=== PATIENT | female | born 1980 | race Two or more races ===

== ENCOUNTER 2024-06-04 10:20 | Day surgery (SDC) | payer BC, SELFPAY ==
[2024-06-01 14:56] VITALS: BMI 36.3
[2024-06-04] VITALS (9 sets, daily range): BP systolic 110–145; BP diastolic 72–115; PULSE 69–106; RESP 14–20; TEMP 36.9; O2SAT 93–98; BMI 36.2
[2024-06-04] MEDS: DiphenhydrAMINE INJ 50 MG/ML VIAL 25 MG IV (13:11)
[2024-06-04] MEDS: ONDANSETRON INJ 2 MG/ML INJ 2 ML 4 MG IV (13:13)
[2024-06-04] MEDS: fentaNYL CIT INJ 50 mCg/ML AMP 2ML (ASD USE ONLY) IV (13:13)
[2024-06-04] MEDS: MEPERIDINE INJ 25 MG/ML VIAL (ASD USE ONLY) IV (13:20)
[2024-06-04] MEDS: MIDAZOLAM INJ 1 MG/ML VIAL 2 ML (ASD USE ONLY) 2 MG IV (13:20)
== END 2024-06-04 14:15 | disposition home or self-care (01) ==
PROVIDERS: PCP Nurse Practitioner; Referring Provider Specialist; Visit Provider Specialist
PROC: 0DBE8ZX Excision of Large Intestine, Via Natural or Artificial Opening Endoscopic, Diagnostic (ICD-10-PCS; CPT 45380; principal; 2024-06-04 09:45)
DX: D12.3 Benign neoplasm of transverse colon (principal); K64.8 Other hemorrhoids
CPT/HCPCS: 45380; 81025; J1200; J2175; J2250; J2405; J3010

== ENCOUNTER 2024-06-19 16:51 | Emergency (ER) | payer BC, SELFPAY ==
[2024-06-19 17:14] VITALS: BP 125/81; PULSE 113; RESP 20; TEMP 38.2; O2SAT 97; BMI 35.4
--- NOTE | 2024-06-19 17:27 | XR_ITS ---
Examination: PA lateral chest 2 views Technique: Upright PA lateral chest 2 views Exam date and time: June 082024 1825 hrs. Comparison March 31, 2008 Indication: Fever vomiting coughing today. Findings: Normal heart size Mild accentuation bronchovascular markings. No lobar pneumonia Impression: Mild accentuation bronchovascular markings
--- NOTE | 2024-06-19 17:31 | PD.EDRME ---
Rapid Medical Screening Exam RME Arrival date/time: 06/19/24 16:51 43-year-old female presents to the emergency department complains of nausea vomiting abdominal pain Chief Complaint: Nausea/Vomiting/Diarrhea Time Seen by Provider: 06/19/24 17:01 Vital signs: Vital Signs Temperature 100.8 F H 06/19/24 17:14 Pulse Rate 113 H 06/19/24 17:14 Respiratory Rate 20 06/19/24 17:14 Blood Pressure 125/81 06/19/24 17:14 Pulse Oximetry (%) 97 06/19/24 17:14 Oxygen Delivery Method Room Air 06/19/24 17:14
[2024-06-19] MEDS: ONDANSETRON ODT 4 MG TABRAP PO (17:48)
[2024-06-19] MEDS: ACETAMINOPHEN 500 MG TABLET 1000 MG PO (17:48)
[2024-06-19 18:11] LABS: Collection Type, Urine Clean Catch
[2024-06-19 18:31] LABS: Basophils % (Auto) 0 % (0-2.5); Eosinophils % (Auto) 0 % (0-10); Hemoglobin 15.3 g/dL (12.0-16.0); Immature Granulocytes % (Auto) 0 % (0-0); Immature Granulocytes Auto 0.05 Thou/mm3 (0.00-0.00); Lymphocytes # (Auto) 0.9 Thou/mm3 (1.0-4.8); Lymphocytes % (Auto) 8 % (10-50); Mean Corpuscular HGB Conc 34.8 g/dl (31.0-37.0); Mean Corpuscular Hemoglobin 31.2 pg (25.0-35.0); Mean Corpuscular Volume 90 fL (80-100); Monocytes # (Auto) 0.3 Thou/mm3 (0.0-0.8); Monocytes % (Auto) 2 % (0-12); Neutrophils # (Auto) 10.5 Thou/mm3 (1.8-7.7); Neutrophils % (Auto) 90 % (37-80); Nucleated Red Blood Cell % 0 /100 WBC (0); Platelet Count 330 Thou/mm3 (140-440); Red Blood Count 4.91 Miln/mm3 (4.00-5.20); White Blood Count 11.8 Thou/mm3 (3.6-11.0)
[2024-06-19 18:42] LABS: HCG,Qualitative Serum Negative
[2024-06-19 18:45] LABS: Alanine Aminotransferase 227 U/L (10-49); Albumin, Serum 4.7 gm/dL (3.5-5.0); Albumin/Globulin Ratio 1.2 (1.2-2.2); Alkaline Phosphatase 112 U/L (46-116); Anion Gap 12 (7-16); Aspartate Amino Transferase 108 U/L (0-34); BUN/Creatinine Ratio 15 Ratio (12-20); Bilirubin,Total 1.2 mg/dL (0.3-1.2); Blood Urea Nitrogen 12 mg/dL (9-23); Carbon Dioxide 25.2 mMol/L (20.0-31.0); Chloride 103 mMol/L (98-107); Creatinine (Component) 0.8 mg/dL (0.6-1.3); Estimated Creatinine Clearance 95.3 mL/min (>60); Globulin 3.9 gm/dL (2.3-3.5); Glucose 130 mg/dL (74-106); Lipase 32 U/L (12-53); Osmolality,Calculated 281 (275-295); Potassium 4.1 mMol/L (3.4-5.1); Procalcitonin 0.38 ng/ml (0.0-0.49); Sodium 140 mMol/L (136-145); Total Protein 8.6 gm/dL (5.7-8.2); eGFR > 60 See Note
[2024-06-19 19:06] LABS: Bacteria,Urine Rare; Bilirubin,Urine Negative (Negative); Blood,Urine Negative (Negative); Color,Urine Yellow (Lt Yel-Yel); Glucose, Urine Negative (Negative); Hyaline Casts,Urine < 1 /hpf (0-1); Ketones,Urine Trace (Negative); Leukocyte Esterase,Urine Negative (Negative); Nitrite,Urine Negative (Negative); Protein,Urine 2+ (Neg - Trace); RBC,Urine 3 /hpf (0-3); Squamous Epithelial Cell,Urine 4 /hpf (0-5); Urobilinogen,Urine Negative mg/dL (0.0-1.0); WBC,Urine 3 /hpf (0-5)
[2024-06-19 19:11] LABS: Clarity,Urine Hazy (Clear/Hazy)
[2024-06-19 19:55] VITALS: BP 110/75; PULSE 100; RESP 18; TEMP 37.2; O2SAT 97
--- NOTE | 2024-06-19 19:59 | EDNOTE_ITS ---
Nausea/Vomit./Diarrhea-RME/HPI General Chief complaint: Nausea/Vomiting/Diarrhea Stated complaint: VOMITING/CHILS/WEAK TODAY Time Seen by Provider: 06/19/24 17:01 Arrival date/time: 06/19/24 16:51 Limitations: no limitations RME / HPI RME / HPI Narrative: 06/19/24 16:51 43-year-old female presents to the emergency department complains of nausea vomiting abdominal pain DR. JOSHI MAIN ED EVALUATION: 43 year old female presents to the Emergency Department with complaint of nausea and vomiting since this morning. Symptoms are moderate. Associated symptoms include a headache and generalized weakness. She states she was given Zofran and Tylenol and it helped her headache and now she can tolerate water. PMHx: Diabetes mellitus Social Hx: No tobacco, alcohol, or substance use. Related Data Home Medications ?Medication ?Instructions ?Recorded ?Confirmed metformin 500 mg tablet 500 mg PO QDAY 06/01/24 06/01/24 Previous Rx's ?Medication ?Instructions ?Recorded ondansetron 4 mg disintegrating 4 mg PO Q8H PRN nausea and 06/19/24 tablet vomiting #20 tabs Allergies Allergy/AdvReac Type Severity Reaction Status Date / Time No Known Allergies Allergy Verified 06/19/24 16:53 Review of Systems Review of Systems Systems Reviewed: All systems reviewed, normal except as documented Narrative Review of Systems: GEN: No fever, no chills, no weight loss EYES: No discharge, no visual changes, no pain HEENT: No ear pain, no congestion, no sore throat PULM: No shortness of breath, no cough, no congestion CV: No chest pain, no dyspnea on exertion, no palpitations GI: + nausea, + vomiting, no diarrhea, no pain, no constipation : No frequency, no urgency and no dysuria MUSC/SKEL: No joint pain, no back pain SKIN: No rash PSYCH: No hallucinations, no depression HEME/LYMPH: No easy bleeding or bruising tendencies NEURO: + generalized weakness, + headache Past Medical History Past Medical History NEUROLOGIC: Positive Neurological Disorders and Seizures (DURING HAD ECLAMPSIA- 16 YEARS AGO) CARDIAC: Positive Cardiac Disorders and Hypercholesterolemia (NO MEDS); Negative Congestive Heart Failure or Edema RESPIRATORY: Negative Chronic Obstructive Pulmonary Disease (COPD) or Asthma GASTROINTESTINAL: Positive Gastrointestinal Disorders (ABDOMINAL PAIN) and Hemorrhoids; Negative Obesity GENITOURINARY: Positive Genitourinary Disorders and Kidney Stones; Negative Renal Disease REPRODUCTIVE: Positive Previous Pregnancies; Negative Pelvic Inflammatory Disease MUSCULOSKELETAL: Negative Musculoskeletal Disorders ENDOCRINE: Positive Endocrine Disorders and Diabetes Mellitus Type 2; Negative Diabetes Mellitus Type 1 HEMATOLOGIC: Negative Blood Disorders or Sickle Cell Disease PSYCHO/SOCIAL: Positive Anxiety and Depression OTHER HISTORY: Positive Chicken Pox and Cancer; Negative Autoimmune Disease, Falls, Blood Transfusions, Blood Transfusion Reaction, Anesthesia Reactions, MRSA or Vancomycin-Resistant Enterococci Family History FAMILY HISTORY: Positive Family Cardiac Disorders and Family Cancer; Negative Family Psychiatric Problems, Family Respiratory Disorders, Family Gastrointestinal Problems, Family Surgery or Family Anesthesia Reaction Surgical History SURGICAL: Positive Abdominal Surgery, Hysterectomy and Section (X2); Negative Cardiac Surgery, Endocrine Surgery, Ear Surgery, Nephrectomy, Joint Replacement or Neurologic Surgery Social History SMOKING STATUS: Never smoker ED Exam General Limitations: Present no limitations General appearance: Present alert and in no apparent distress Head Head exam: Present atraumatic, normocephalic and normal inspection Eye Eye exam: Present normal appearance, PERRL and EOMI ENT ENT exam: Present normal exam, normal oropharynx and mucous membranes dry Neck Neck exam: Present normal inspection, full ROM and trachea midline Chest Chest inspection: Present normal inspection and symmetric chest wall rise Respiratory Respiratory exam: Present normal lung sounds bilaterally Cardiovascular Cardiovascular exam: Present regular rate, normal rhythm and normal heart sounds Abdominal Exam Abdominal exam: Present soft and normal bowel sounds Extremities Exam Extremities exam: Present normal inspection and full ROM Back Exam Back exam: Present normal inspection and full ROM Neurological Exam Neurological exam: Present alert, oriented X3 and CN II-XII intact Psychiatric Psychiatric exam: Present normal affect and normal mood Skin Skin exam: Present warm, dry, intact and normal color Course Quality Measures none Orders Category Date Time Status Bedside COVID-19 Antigen Test NOW Care 06/19/24 17:27 Active Bedside Influenza A&B Antigen Test NOW Care 06/19/24 17:55 Completed XR chest 2V Stat Exams 06/19/24 17:27 Completed Blood Culture (Lab) Stat Lab 06/19/24 17:40 Received CBC Stat Lab 06/19/24 17:40 Completed Comprehensive Metabolic Panel Stat Lab 06/19/24 17:40 Completed HCG,Qualitative Serum Stat Lab 06/19/24 17:40 Completed Lactate (Lactic Acid) Stat Lab 06/19/24 17:40 Completed Lipase Stat Lab 06/19/24 17:40 Completed Procalcitonin Stat Lab 06/19/24 17:40 Completed Urinalysis Stat Lab 06/19/24 17:55 Completed Urine Culture Stat Lab 06/19/24 17:55 Received Acetaminophen Tab [Tylenol ES Tab] Med 06/19/24 17:27 Discontinued 1,000 mg PO X1 ONE Ondansetron Odt [Zofran Odt] Med 06/19/24 17:30 Discontinued 4 mg PO X1 ONE Reevaluation(s) Reevaluation #1: Patient is tolerating P.O. without any vomiting. Patient remains clinically stable throughout the emergency department visit. Re- assessment at the time of disposition demonstrates that the patient is in no acute distress. We reviewed all the results, analysis, and treatment plans. Patient is amenable to discharge. Strict return precautions were outlined. Patient was discharged in stable condition. Time: 20:04 Vital Signs Vital signs: Vital Signs Temperature 100.8 F H 06/19/24 17:14 Pulse Rate 113 H 06/19/24 17:14 Respiratory Rate 20 06/19/24 17:14 Blood Pressure 125/81 06/19/24 17:14 Pulse Oximetry (%) 97 06/19/24 17:14 Oxygen Delivery Method Room Air 06/19/24 17:14 Nausea/Vomiting/Diarrhea MDM Narrative MDM Narrative:: I, Peggy Nelson am scribing for and in the presence of Dr. Joshi. Patient data External records reviewed:: [facility] previous records (Reviewed colonoscopy note by Dr. Hayes dated 06/04/24.) Clinical information provided by:: patient Social determinants that could affect healthcare access:: none Patient has the following chronic illnesses:: Diabetes mellitus How is presenting disease/condition affected by chronic disease/condition?: exacerbated by Evaluation data The following diagnostics were reviewed and interpreted by me:: lab results and radiology exam(s) Lab and/or radiology exams considered but not ordered:: none Interpretation Summary: Procedure(s): XR chest 2V Accession Number(s): [id number] cc: Nanette (MICHELLE),Dewey MARTINEZ; Aspen Orr; Aston Henderson MD~ Examination: PA lateral chest 2 views Technique: Upright PA lateral chest 2 views Exam date and time: June 082024 1825 hrs. Comparison March 31, 2008 Indication: Fever vomiting coughing today. Findings: Normal heart size Mild accentuation bronchovascular markings. No lobar pneumonia Impression: Mild accentuation bronchovascular markings Dictated By: Aston Henderson MD Medications / Prescriptions Medications / Prescriptions considered but not ordered:: none Medication administrations:: Medication Administration History Discontinued Medications Acetaminophen (Acetaminophen 500 Mg Tablet) 1,000 mg PO X1 ONE Stop: 06/19/24 17:28 Last Admin: 06/19/24 17:48 Dose: 1,000 mg Documented By: NELLY Ondansetron HCl (Ondansetron Odt 4 Mg Tabrap) 4 mg PO X1 ONE; Protocol Stop: 06/19/24 17:31 Last Admin: 06/19/24 17:48 Dose: 4 mg Documented By: NELLY see above Consultations Consultation(s) initiated? (list below): No Diagnosis Nausea Differential Diagnosis: other (dehydration, electrolyte imbalance, viral syndrome, sepsis) Most likely diagnosis given after review of the tests above:: Nausea, vomiting and diarrhea Admission Indicated Admission indicated?: not indicated Admission Request Was there a request for admission?: No Disposition Plan Disposition Plan: Discharge Discharge Attestation Discharge Attestation: The patient and all family members were given an opportunity to ask questions and understood the discharge instructions. Discharge instructions specifically effects, indications for sooner follow up or return to the emergency department, and the expected course of current diagnosis. Patient condition: Stable Discharge Plan Plan Patient Disposition: HOME (Self Care) Patient condition on transfer: Stable Prescriptions/Referrals Prescriptions/Med Rec: New ondansetron 4 mg tablet,disintegrating 4 mg PO Q8H PRN (Reason: nausea and vomiting) Qty: 20 0RF No Action metformin 500 mg tablet 500 mg PO QDAY Patient Comments: take 1 tablet by mouth once daily Referrals: Aspen Orr FNP [Primary Care Provider] - In 1 week Problem List Clinical Impression: Nausea, vomiting and diarrhea Patient/Caregiver Discharge Instructions Diet Instructions: State hydrated with Pedialyte and Gatorade to urine is almost clear. Education Materials: ED Vomiting and Diarrhea ... Additional Instructions: Please stay hydrated with Pedialyte and/or Gatorade. You can continue taking the anti-nausea medication. Feel free to take [id number] Tylenol 650 mg 3 times a day if needed if you have a fever. Return to the emergency department if you are having worsening vomiting cannot tolerate liquids, any abdominal pain, fever not controlled with Tylenol, or any other concerns. Print Language: Greenlandic Stand Alone Forms: [employer]ac[employer]a Award Info., Patient Portal Info Letter
== END 2024-06-19 20:59 | disposition home or self-care (01) ==
PROVIDERS: Nurse Practitioner Primary Care; Emergency Provider Emergency Medicine; PCP Nurse Practitioner
DX: R11.2 Nausea with vomiting, unspecified (principal); R19.7 Diarrhea, unspecified; J98.4 Other disorders of lung
CPT/HCPCS: 36415; 71046; 80053; 81001; 83605; 83690; 84145; 84703; 85025; 87040; 87086; 87400; 99283; Q0162; A9270

== ENCOUNTER → 2024-09-10 | Outpatient (CLI) | payer BC, SELFPAY ==
--- NOTE | 2024-09-10 14:01 | XR_ITS ---
Examination: Shoulder,right, 3 views Technique: Shoulder AP internal rotation, AP external rotation, Y view shoulder, 3 views Exam date and time :September 10, 2024 1534 hours INDICATIONS: Right shoulder pain beginning one week ago FINDINGS: No shoulder fracture or dislocation Mild osteoarthritis acromioclavicular joint Moderate calcific tendinitis IMPRESSION: Moderate right shoulder calcific tendinitis
== END | disposition home or self-care (01) ==
LOC: COPL 13:38 → CDIM 09-14 07:45
PROVIDERS: PCP Family Medicine; Referring Provider Nurse Practitioner Family; Visit Provider Nurse Practitioner Family
DX: M75.31 Calcific tendinitis of right shoulder (principal)
CPT/HCPCS: 73030

== ENCOUNTER 2024-09-22 02:45 | Emergency (ER) | payer BC, SELFPAY ==
[2024-09-22 02:45] VITALS: BMI 49.4
--- NOTE | 2024-09-22 02:49 | EKG_ITS ---
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
[2024-09-22 02:51] VITALS: BP 135/83; PULSE 74; RESP 21; TEMP 37; O2SAT 98
[2024-09-22] MEDS: NAPROXEN 250 MG TABLET 500 MG PO (03:19)
[2024-09-22] MEDS: CYCLObenzaPRINE 5 MG TABLET PO (03:19)
--- NOTE | 2024-09-22 06:25 | EDNOTE_ITS ---
ED Chest Pain RME/HPI General Chief Complaint: Chest Pain Stated Complaint: CHEST PAIN Time Seen by Provider: 09/22/24 03:06 Arrival date/time: 09/22/24 02:45 43F with history of DM presents to ED with 1 day of CP and muscle tightness. Patient denies URI symptoms and SOB. Limitations: no limitations Related Data Home Medications ?Medication ?Instructions ?Recorded ?Confirmed metformin 500 mg tablet 500 mg PO QDAY 06/01/2408/21 Previous Rx's ?Medication ?Instructions ?Recorded ondansetron 4 mg disintegrating 4 mg PO Q8H PRN nausea and 06/19/24 tablet vomiting #20 tabs Allergies Allergy/AdvReac Type Severity Reaction Status Date / Time No Known Allergies Allergy Verified 06/19/24 16:53 Review of Systems Review of Systems Systems Reviewed: All systems reviewed, normal except as documented Constitutional Constitutional: Reports system reviewed and no additional complaints, except as documented, Denies fever(s) and Denies headache(s) ENT Ears, Nose, Mouth, and Throat: Denies disequilibrium and Denies headache(s) Cardiovascular Cardiovascular: Reports system reviewed and no additional complaints, except as documented, Reports as per HPI, Reports chest pain and Denies dyspnea Respiratory Respiratory: Reports system reviewed and no additional complaints, except as documented, Denies cough and Denies dyspnea Gastrointestinal Gastrointestinal: Reports system reviewed and no additional complaints, except as documented, Denies abdominal pain, Denies nausea and Denies vomiting Neurologic Neurologic: Reports system reviewed and no additional complaints, except as documented, Denies confusion, Denies disequilibrium and Denies headache(s) Psychiatric Psychiatric: Denies confusion Past Medical History Past Medical History NEUROLOGIC: Positive Neurological Disorders and Seizures (DURING HAD ECLAMPSIA- 16 YEARS AGO) CARDIAC: Positive Cardiac Disorders and Hypercholesterolemia (NO MEDS); Negative Congestive Heart Failure or Edema RESPIRATORY: Negative Chronic Obstructive Pulmonary Disease (COPD) or Asthma GASTROINTESTINAL: Positive Gastrointestinal Disorders (ABDOMINAL PAIN) and Hemorrhoids; Negative Obesity GENITOURINARY: Positive Genitourinary Disorders and Kidney Stones; Negative Renal Disease REPRODUCTIVE: Positive Previous Pregnancies; Negative Pelvic Inflammatory Disease MUSCULOSKELETAL: Negative Musculoskeletal Disorders ENDOCRINE: Positive Endocrine Disorders and Diabetes Mellitus Type 2; Negative Diabetes Mellitus Type 1 HEMATOLOGIC: Negative Blood Disorders or Sickle Cell Disease PSYCHO/SOCIAL: Positive Anxiety and Depression OTHER HISTORY: Positive Chicken Pox and Cancer; Negative Autoimmune Disease, Falls, Blood Transfusions, Blood Transfusion Reaction, Anesthesia Reactions, MRSA or Vancomycin-Resistant Enterococci Family History FAMILY HISTORY: Positive Family Cardiac Disorders and Family Cancer; Negative Family Psychiatric Problems, Family Respiratory Disorders, Family Gastrointestinal Problems, Family Surgery or Family Anesthesia Reaction Surgical History SURGICAL: Positive Abdominal Surgery, Hysterectomy and Section (X2); Negative Cardiac Surgery, Endocrine Surgery, Ear Surgery, Nephrectomy, Joint Replacement or Neurologic Surgery Social History SMOKING STATUS: Never smoker ED Exam General Limitations: Present no limitations General appearance: Present alert and in no apparent distress Head Head exam: Present atraumatic Eye Eye exam: Present normal appearance, PERRL and EOMI ENT ENT exam: Present normal exam, normal oropharynx and mucous membranes moist Neck Neck exam: Present normal inspection, full ROM and trachea midline Chest Chest inspection: Present symmetric chest wall rise and tenderness Respiratory Respiratory exam: Present normal lung sounds bilaterally Cardiovascular Cardiovascular exam: Present regular rate, normal rhythm and normal heart sounds Abdominal Exam Abdominal exam: Present soft and normal bowel sounds Extremities Exam Extremities exam: Present normal inspection and full ROM Back Exam Back exam: Present normal inspection and full ROM Neurological Exam Neurological exam: Present alert, oriented X3 and CN II-XII intact Psychiatric Psychiatric exam: Present normal affect and normal mood Skin Skin exam: Present warm, dry, intact and normal color Course Quality Measures none Orders Category Date Time Status EKG (ED ONLY) *Do not use* NOW Care 09/22/24 02:49 Completed EKG (ED Only) Stat Exams 09/22/24 02:49 Draft CYCLObenzaPRINE [Flexeril] Med 09/22/24 03:06 Discontinued 5 mg PO X1 ONE Naproxen [Naprosyn] Med 09/22/24 03:06 Discontinued 500 mg PO X1 ONE Vital Signs Vital signs: Vital Signs Temperature 98.6 F 09/22/24 02:51 Pulse Rate 74 09/22/24 02:51 Respiratory Rate 21 H 09/22/24 02:51 Blood Pressure 135/83 H 09/22/24 02:51 Pulse Oximetry (%) 98 09/22/24 02:51 Oxygen Delivery Method Room Air 09/22/24 02:51 O2 at 98% on RA and WNLs Chest Pain MDM Narrative MDM Narrative:: 43F with history of DM presents to ED with 1 day of CP and muscle tightness. Patient denies URI symptoms and SOB. Physical exam reveals chest wall tenderness. Patient is afebrile, calm, and alert. EKG is NSR. Meds improved symptoms. Patient data External records reviewed:: [facility] previous records Clinical information provided by:: patient Social determinants that could affect healthcare access:: none Patient has the following chronic illnesses:: DM How is presenting disease/condition affected by chronic disease/condition?: exacerbated by Evaluation data The following diagnostics were reviewed and interpreted by me:: EKG tracing(s) Lab and/or radiology exams considered but not ordered:: ordered Interpretation Summary: above Medications / Prescriptions Medications or Prescriptions considered but not ordered:: ordered Medication administrations:: Medication Administration History Discontinued Medications Cyclobenzaprine HCl (Cyclobenzaprine 5 Mg Tablet) 5 mg PO X1 ONE Stop: 09/22/24 03:07 Last Admin: 09/22/24 03:19 Dose: 5 mg Documented By: NELLY Naproxen (Naproxen 250 Mg Tablet) 500 mg PO X1 ONE Stop: 09/22/24 03:07 Last Admin: 09/22/24 03:19 Dose: 500 mg Documented By: NELLY above Consultations Consultation(s) initiated? (list below): No Diagnosis Chest Pain Differential Diagnosis: fracture of rib, pneumothorax, stable angina, unstable angina pectoris, atypical chest pain, st elevation myocardial infarction, costochondritis, chest pain and biliary colic Most likely diagnosis given after review of the tests above:: costochondritis Admission Indicated Admission indicated?: not indicated Admission Request Was there a request for admission?: No Disposition Plan Disposition Plan: Discharge Discharge Attestation Discharge Attestation: The patient and all family members were given an opportunity to ask questions and understood the discharge instructions. Discharge instructions specifically effects, indications for sooner follow up or return to the emergency department, and the expected course of current diagnosis. Patient condition: Stable Discharge Plan Plan Patient Disposition: HOME (Self Care) Disposition Comment: Stable Prescriptions/Referrals Prescriptions/Med Rec: No Action metformin 500 mg tablet 500 mg PO QDAY Patient Comments: take 1 tablet by mouth once daily ondansetron 4 mg tablet,disintegrating 4 mg PO Q8H PRN (Reason: nausea and vomiting) Qty: 20 0RF Referrals: Aspen Orr FNP [Primary Care Provider] - In 1 week Problem List Clinical Impression: Costochondritis Patient/Caregiver Discharge Instructions Education Materials: ED Chest Wall Pain, Costochondritis Additional Instructions: Please follow-up with PCP within 24-48 hours and return immediately if symptoms worsen. NSAIDs tend to work better for this type of pain. Print Language: Jordanian Stand Alone Forms: Patient Portal Info Letter PA/COURTESY CAR DRIVER Supervising Physician KIERAN/COURTESY CAR DRIVER Supervising Physician: Dr. Giordano
== END 2024-09-22 04:03 | disposition home or self-care (01) ==
PROVIDERS: Emergency Provider Emergency Medicine; PCP Nurse Practitioner
DX: M94.0 Chondrocostal junction syndrome [Tietze] (principal); R94.31 Abnormal electrocardiogram [ECG] [EKG]; E78.00 Pure hypercholesterolemia, unspecified
CPT/HCPCS: 93005; 99283; A9270